=== PATIENT | female | born 1985 | race Caucasian/White ===

== ENCOUNTER 2024-06-12 05:16 | Emergency (ER) | payer SELFPAY ==
[~2024-06-12] VITALS: Ht 172.7 cm; Wt 79.4 kg
[2024-06-12] MEDS ORDERED: TraMADol HCl 50 MG Tab PO ONE (06:00)
[2024-06-12] MEDS ORDERED: Trimethoprim/Sulfamethoxazole DS Tab PO ONE (06:00)
[2024-06-12] MEDS ORDERED: Tetanus,Diphtheria Toxd Ped/Pf 0.5 ML VIAL IM ONE (06:00)
[2024-06-12] MEDS ORDERED: Diphth,Pertuss(Acell),Tet Vac 0.5 ML VIAL IM ONE (06:15)
[2024-06-12] MEDS ORDERED: SULTRIDS PO (06:18)
[2024-06-12] MEDS ORDERED: NAPR500 PO (06:48)
== END 2024-06-12 07:09 | disposition home or self-care (01) ==
LOC: ER 05:16
DX: S81.811A Laceration without foreign body, right lower leg, initial encounter (principal); L03.113 Cellulitis of right upper limb; W26.0XXA Contact with knife, initial encounter
CPT/HCPCS: 12002; 90471; 90702; 90715; 99283-25; A9270